=== PATIENT | female | born 1970 | race Caucasian/White ===

== ENCOUNTER 2020-07-21 16:10 | Inpatient (IN) | payer MEDICAID ==
[~2020-07-21] VITALS: Ht 152.4 cm; Wt 51.3 kg
[2020-07-21 16:23] VITALS: Ht 152.4 cm; Wt 51.3 kg
[2020-07-21 17:23] LABS: BASOPHIL % 0.6 % (0-2); PLATELET COUNT 219 x10^3mcL (130-400)
[2020-07-21 17:26] LABS: RED CELL DISTRIBUTION WIDTH 15.8 % (11.5-14.5)
[2020-07-21 17:27] LABS: BILIRUBIN TOTAL 0.3 mg/dL (0.20-1.00); CALCIUM 8.7 mg/dL (8.5-10.1); CARBON DIOXIDE 17.9 mmol/L (21-32); TOTAL PROTEIN, SERUM 7.3 g/dL (6.4-8.2)
[2020-07-21 17:37] LABS: POTASSIUM SERUM 6.7 mmol/L (3.5-5.1)
[2020-07-21 17:38] LABS: CREATININE SERUM 10.7 mg/dL (0.6-1.0)
[2020-07-21 19:29] LABS: MAGNESIUM 3.6 mg/dL (1.8-2.4); PHOSPHOROUS 5.4 mg/dL (2.5-4.9)
[2020-07-21 19:37] LABS: T3 TOTAL 0.59 ng/mL
[2020-07-21 19:39] LABS: CHOLESTEROL/HDL RATIO 3.9; FREE T4 0.67 ng/dL (0.76-1.46)
[2020-07-21 19:56] LABS: FREE THYROXINE INDEX 1.2 ug/dL (1.4-4.5); T4(THYROXINE) 3.6 ug/dL (4.7-13.3)
[2020-07-21] MEDS ORDERED: LISINOPRIL10 MG PO (20:56)
[2020-07-21] MEDS ORDERED: AMLODIPINE BESY10 M2 PO (20:56)
[2020-07-21 21:14] VITALS: BP 136/73
[2020-07-21 21:59] LABS: CARBON DIOXIDE 14.9 mmol/L (21-32)
[2020-07-21 22:03] LABS: POTASSIUM SERUM 6.4 mmol/L (3.5-5.1)
[2020-07-22 07:12] LABS: BASOPHIL % 0.2 % (0-2); PLATELET COUNT 232 x10^3mcL (130-400)
[2020-07-22 07:28] LABS: CALCIUM 8.9 mg/dL (8.5-10.1); CARBON DIOXIDE 29.2 mmol/L (21-32); MAGNESIUM 2.5 mg/dL (1.8-2.4); PHOSPHOROUS 6.2 mg/dL (2.5-4.9); POTASSIUM SERUM 4.4 mmol/L (3.5-5.1); RED CELL DISTRIBUTION WIDTH 15.1 % (11.5-14.5)
[2020-07-22 07:36] LABS: CREATININE SERUM 5.9 mg/dL (0.6-1.0)
[2020-07-22 07:52] VITALS: BP 142/88
[2020-07-22 11:47] VITALS: BP 108/68
[2020-07-22 16:02] VITALS: BP 113/83
== END 2020-07-22 16:37 | disposition home or self-care (01) | DRG 241 ==
LOC: ED 16:10 → DU 18:46
PROVIDERS: Emergency Medicine; ADMIT Internal Medicine; ATTEND Internal Medicine
PROC: 5A1D70Z Performance of Urinary Filtration, Intermittent, Less than 6 Hours Per Day (ICD-10-PCS; principal; 2020-07-21)
DX: K29.80 Duodenitis without bleeding (principal); I12.0 Hypertensive chronic kidney disease with stage 5 chronic kidney disease or end stage renal disease; E83.39 Other disorders of phosphorus metabolism; E87.5 Hyperkalemia; N18.6 End stage renal disease; Z20.828 Contact with and (suspected) exposure to other viral communicable diseases; E83.41 Hypermagnesemia; D63.1 Anemia in chronic kidney disease; Z83.3 Family history of diabetes mellitus; Z82.49 Family history of ischemic heart disease and other diseases of the circulatory system
CPT/HCPCS: 83880; 84439; 90732; C9113; G0378; J1644; J2270; J7030

== ENCOUNTER 2020-09-09 11:19 | Emergency (ER) | payer MEDICAID ==
[~2020-09-09] VITALS: Ht 152.4 cm; Wt 49.9 kg
[~2020-09-09 11:19] MED LIST: AMLODIPINE BESY10 M2 PO; LISINOPRIL10 MG PO
[2020-09-09 11:33] VITALS: BP 146/83; Ht 152.4 cm; Wt 49.9 kg
[2020-09-09 14:06] LABS: BASOPHIL % 0.8 % (0.2-1.3); PLATELET COUNT 229 x10^3mcL (179-408)
[2020-09-09 14:16] LABS: RED CELL DISTRIBUTION WIDTH 16.7 % (12.3-17.7)
[2020-09-09 14:20] LABS: ALBUMIN 3.6 g/dL (3.4-5.0); BILIRUBIN TOTAL 0.31 mg/dL (0.20-1.00); CALCIUM 8.4 mg/dL (8.5-10.1); CARBON DIOXIDE 18.3 mmol/L (21-32); TOTAL PROTEIN, SERUM 7.4 g/dL (6.4-8.2)
[2020-09-09 14:23] LABS: rbc morphology (normal/abnorm) NORMAL (NORMAL)
[2020-09-09 14:37] LABS: CREATININE SERUM 10.8 mg/dL (0.6-1.0); POTASSIUM SERUM 6.7 mmol/L (3.5-5.1)
== END 2020-09-09 17:58 | disposition home or self-care (01) ==
LOC: ED 11:19
PROVIDERS: Emergency Medicine
DX: E87.5 Hyperkalemia (principal); N18.6 End stage renal disease; Z99.2 Dependence on renal dialysis; Z86.2 Personal history of diseases of the blood and blood-forming organs and certain disorders involving the immune mechanism